=== PATIENT | male | born 2000 | race Caucasian/White ===

== ENCOUNTER 2021-04-13 22:06 | Emergency (ER) | payer BC ==
[~2021-04-13] VITALS: Ht 190.5 cm; Wt 113.4 kg
[2021-04-13] MEDS ORDERED: DIPHEDRYL12.5 MG/1 PO (23:31)
[2021-04-13] MEDS ORDERED: ACETAMINOPHEN-1 EAC2 PO (23:31)
[2021-04-13 23:43] VITALS: BP 141/89
[2021-04-14] MEDS ORDERED: DIPHEDRYL12.5 MG/1 PO (12:22)
[2021-04-14] MEDS ORDERED: ACETAMINOPHEN-1 EAC2 PO (12:22)
== END 2021-04-13 23:44 | disposition home or self-care (01) ==
LOC: M.ERS 22:06
DX: J02.8 Acute pharyngitis due to other specified organisms (principal); Z20.822 Contact with and (suspected) exposure to COVID-19